=== PATIENT | female | born 1955 | race African-American/Black ===

== ENCOUNTER 2020-02-10 14:39 | Inpatient (IN) | payer MEDICARE, MEDICAID ==
[~2020-02-10] VITALS: Ht 167.6 cm; Wt 117.0 kg
[2020-02-10] MEDS ORDERED: SODIUM CHLORIDE 0.9% 1,000 ML IV ONE (15:15)
[2020-02-10 16:15] LABS: BASOPHILS % 0.3 % (0.0-2.0); EOSINOPHILS % 1.1 % (0.0-5.0); HEMATOCRIT. 39.9 % (36.0-48.0); LYMPHOCYTES % 20.9 % (20.0-50.0); MEAN CORPUSCULAR HEMOGLOBIN 24.9 pg (28.0-32.0); MEAN CORPUSCULAR VOLUME 76.2 fL (81.0-99.0); MEAN PLATELET VOLUME 8.9 fl (7.4-10.4); MONOCYTES % 4.7 % (2.0-8.0); PLATELET 323 x1000/uL (130-400); RED BLOOD CELL COUNT 5.23 mill/uL (4.2-5.4); RED CELL DISTRIBUTION WIDTH 17.4 % (11.6-14.6)
[2020-02-10 16:49] LABS: CHLORIDE 109 mEq/L (98-107)
[2020-02-10] MEDS ORDERED: IPRATROPIUM/ALBUTEROL 0.5-3(2.5)MG/3ML NEB NEB PRN (22:30)
[2020-02-10] MEDS ORDERED: ACETAMINOPHEN 325MG TABLET PO PRN (22:30)
[2020-02-10] MEDS ORDERED: MAGNESIUM/ALUMINUM HYDROXIDE/SIMETHICONE 30ML UDC PO PRN (22:30)
[2020-02-10] MEDS ORDERED: LORAZEPAM 0.5MG TABLET PO PRN (22:30)
[2020-02-10] MEDS ORDERED: DOCUSATE SODIUM 100MG CAPSULE PO PRN (22:30)
[2020-02-10] MEDS ORDERED: ONDANSETRON HCL 4MG/2ML INJ IV PRN (22:30)
[2020-02-10] MEDS: SODIUM CHLORIDE 0.9% 1,000 ML IV SCH (22:47)
[2020-02-11] VITALS (33 sets, daily range): BP systolic 114–181; BP diastolic 44–102
[2020-02-11 02:52] LABS: *AMPHETAMINES SCREEN URINE NEGATIVE (NEGATIVE); *BARBITURATES SCREEN URINE NEGATIVE (NEGATIVE); *BENZODIAZEPINES SCREEN URINE NEGATIVE (NEGATIVE); *COCAINE SCREEN URINE NEGATIVE (NEGATIVE)
[2020-02-11 02:53] LABS: CANNABINOID URINE SCREEN NEGATIVE (NEGATIVE); METHADONE URINE SCREEN NEGATIVE (NEGATIVE); OPIATES URINE SCREEN NEGATIVE (NEGATIVE); PHENCYCLIDINE URINE SCREEN NEGATIVE (NEGATIVE)
[2020-02-11 03:21] LABS: CLARITY URINE CLEAR (CLEAR); COLOR URINE YELLOW (YELLOW); KETONES URINE NEGATIVE (NEGATIVE); LEUKOCYTE ESTERASE URINE NEGATIVE (NEGATIVE); NITRITE URINE NEGATIVE (NEGATIVE); OCCULT BLOOD URINE NEGATIVE (NEGATIVE); PROTEIN URINE TRACE (NEGATIVE); SPECIFIC GRAVITY URINE 1.015 (1.005-1.030); UROBILINOGEN URINE 0.2 E.U./dL (0.2-1.0)
[2020-02-11] MEDS: CLONIDINE 0.1MG TABLET PO PRN ×2 (05:06→21:08)
[2020-02-11 05:34] LABS: BASOPHILS % 0.3 % (0.0-2.0); EOSINOPHILS % 1.6 % (0.0-5.0); HEMOGLOBIN. 12.2 g/dL (12.0-16.0); LYMPHOCYTES % 26.9 % (20.0-50.0); MEAN PLATELET VOLUME 8.4 fl (7.4-10.4); MONOCYTES % 5.3 % (2.0-8.0); NEUTROPHILS % 65.9 % (40.0-76.0); PLATELET 289 x1000/uL (130-400); RED BLOOD CELL COUNT 4.87 mill/uL (4.2-5.4); RED CELL DISTRIBUTION WIDTH 17.2 % (11.6-14.6)
[2020-02-11 05:41] LABS: CHLORIDE 111 mEq/L (98-107)
[2020-02-11 05:58] LABS: LDL CHOLESTEROL 145 mg/dL (5-100)
[2020-02-11 05:59] LABS: HDL CHOLESTEROL 38 mg/dL (40-59)
[2020-02-11] MEDS: SODIUM CHLORIDE 0.9% 1,000 ML IV SCH (12:28)
[2020-02-11] MEDS ORDERED: DEXTROSE 50% WATER 50ML SYRINGE IV PRN (14:00)
[2020-02-11] MEDS: LACTULOSE 20G/30ML UDC PO SCH ×2 (14:32→21:08)
[2020-02-11 16:25] LABS: HEPATITIS B SURFACE ANTIGEN NEGATIVE
[2020-02-11 16:55] LABS: HEPATITIS A AB IGM NEGATIVE (NEGATIVE)
[2020-02-11] MEDS: INSULIN LISPRO 100 UNITS/ML SUBCUT SCH ×2 (17:51→21:00)
[2020-02-11] MEDS: BLOOD SUGAR DIAGNOSTIC STRIP TEST SCH ×2 (17:51→21:01)
[2020-02-12] VITALS (46 sets, daily range): BP systolic 118–182; BP diastolic 69–109
[2020-02-12] MEDS: SODIUM CHLORIDE 0.9% 1,000 ML IV SCH (01:02)
[2020-02-12 06:07] LABS: BASOPHILS % 0.3 % (0.0-2.0); EOSINOPHILS % 3.5 % (0.0-5.0); HEMATOCRIT. 34.7 % (36.0-48.0); HEMOGLOBIN. 11.5 g/dL (12.0-16.0); LYMPHOCYTES % 34.9 % (20.0-50.0); MEAN CORPUSCULAR VOLUME 75.8 fL (81.0-99.0); MEAN PLATELET VOLUME 8.7 fl (7.4-10.4); MONOCYTES % 5.2 % (2.0-8.0); NEUTROPHILS % 56.1 % (40.0-76.0); PLATELET 270 x1000/uL (130-400); RED BLOOD CELL COUNT 4.58 mill/uL (4.2-5.4); RED CELL DISTRIBUTION WIDTH 16.6 % (11.6-14.6)
[2020-02-12 06:17] LABS: CHLORIDE 108 mEq/L (98-107)
[2020-02-12] MEDS: LACTULOSE 20G/30ML UDC PO SCH ×2 (06:53→13:16)
[2020-02-12] MEDS: INSULIN LISPRO 100 UNITS/ML SUBCUT SCH ×4 (07:29→20:38)
[2020-02-12] MEDS: BLOOD SUGAR DIAGNOSTIC STRIP TEST SCH ×3 (07:29→20:31)
[2020-02-13] VITALS: BP 163/84
[2020-02-13] MEDS: LACTULOSE 20G/30ML UDC PO SCH ×4 (01:27→20:35)
[2020-02-13 04:00] VITALS: BP 160/90
[2020-02-13] MEDS: CLONIDINE 0.1MG TABLET PO PRN ×3 (05:38→20:55)
[2020-02-13] MEDS: BLOOD SUGAR DIAGNOSTIC STRIP TEST SCH ×4 (05:48→20:34)
[2020-02-13 06:55] LABS: BASOPHILS % 0.5 % (0.0-2.0); EOSINOPHILS % 1.2 % (0.0-5.0); HEMATOCRIT. 34.7 % (36.0-48.0); HEMOGLOBIN. 11.6 g/dL (12.0-16.0); LYMPHOCYTES % 18.4 % (20.0-50.0); MEAN CORPUSCULAR HEMOGLOBIN 25.2 pg (28.0-32.0); MEAN CORPUSCULAR VOLUME 75.2 fL (81.0-99.0); MEAN PLATELET VOLUME 8.6 fl (7.4-10.4); MONOCYTES % 5.5 % (2.0-8.0); NEUTROPHILS % 74.4 % (40.0-76.0); PLATELET 245 x1000/uL (130-400); RED BLOOD CELL COUNT 4.61 mill/uL (4.2-5.4); RED CELL DISTRIBUTION WIDTH 16.4 % (11.6-14.6)
[2020-02-13] MEDS: INSULIN LISPRO 100 UNITS/ML SUBCUT SCH ×4 (07:30→20:34)
[2020-02-13 08:00] VITALS: BP 155/88
[2020-02-13 08:38] LABS: CHLORIDE 108 mEq/L (98-107)
[2020-02-13 12:00] VITALS: BP 167/91
[2020-02-13 16:00] VITALS: BP 162/87
[2020-02-13 20:27] VITALS: BP 178/93
[2020-02-14] VITALS (8 sets, daily range): BP systolic 135–183; BP diastolic 72–97
[2020-02-14] MEDS: LACTULOSE 20G/30ML UDC PO SCH ×3 (06:00→21:30)
[2020-02-14] MEDS: BLOOD SUGAR DIAGNOSTIC STRIP TEST SCH ×4 (06:03→21:30)
[2020-02-14] MEDS: INSULIN LISPRO 100 UNITS/ML SUBCUT SCH ×4 (06:03→21:00)
[2020-02-14 06:30] LABS: CHLORIDE 107 mEq/L (98-107)
[2020-02-14 06:47] LABS: BASOPHILS % 0.3 % (0.0-2.0); HEMATOCRIT. 37.1 % (36.0-48.0); HEMOGLOBIN. 12.4 g/dL (12.0-16.0); LYMPHOCYTES % 24.5 % (20.0-50.0); MEAN CORPUSCULAR HEMOGLOBIN 25.4 pg (28.0-32.0); MEAN CORPUSCULAR VOLUME 75.5 fL (81.0-99.0); MEAN PLATELET VOLUME 8.9 fl (7.4-10.4); MONOCYTES % 6.5 % (2.0-8.0); NEUTROPHILS % 66.7 % (40.0-76.0); PLATELET 233 x1000/uL (130-400); RED BLOOD CELL COUNT 4.91 mill/uL (4.2-5.4); RED CELL DISTRIBUTION WIDTH 16.3 % (11.6-14.6)
[2020-02-14] MEDS: CLONIDINE 0.1MG TABLET PO PRN (10:04)
[2020-02-14] MEDS ORDERED: CLONIDINE 0.2MG TABLET PO PRN (11:30)
[2020-02-14] MEDS ORDERED: AMLO5TAB88 MT (12:35)
[2020-02-14] MEDS ORDERED: HYDRALAZINE 20MG/ML VIAL IV NR (17:00)
[2020-02-15 04:00] VITALS: BP 129/78
[2020-02-15] MEDS: BLOOD SUGAR DIAGNOSTIC STRIP TEST SCH (05:58)
[2020-02-15] MEDS: INSULIN LISPRO 100 UNITS/ML SUBCUT SCH (05:58)
[2020-02-15] MEDS: LACTULOSE 20G/30ML UDC PO SCH (05:58)
[2020-02-15 08:00] VITALS: BP 140/89
[2020-02-17 10:08] LABS: 7-AMINOCLONAZEPAM CONFIRM 62 ng/mL (.); ALPRAZOLAM CONFIRM Negative (.); BARBITURATE SCREEN Negative ug/mL (Cutoff:0.1); BENZODIAZEPINE SCREEN ++POSITIVE++ ng/mL (Cutoff:20); CHLORDIAZEPOXIDE CONFIRM Negative (.); CLONAZEPAM CONFIRM 13 ng/mL (.); DESMETHYLCHLORDIAZEPOXIDE Negative (.); DIAZEPAM CONFIRM Negative (.); FLURAZEPAM CONFIRM Negative (.); LORAZEPAM CONFIRM Negative (.); MIDAZOLAM CONFIRM Negative (.); OPIATES SCREEN Negative ng/mL (Cutoff:5); OXAZEPAM CONFIRM Negative (.); PHENCYCLIDINE SCREEN Negative ng/mL (Cutoff:8); TEMAZEPAM CONFIRM Negative (.); TRIAZOLAM CONFIRM Negative (.)
== END 2020-02-15 09:40 | disposition home or self-care (01) | DRG 812 ==
LOC: ER 14:39 → MICUSO 19:25 → EDBEDREQSVC 19:29 → EDBEDREQTM 19:29 → EDBEDREQ 19:30 → CVICU 02-11 03:17 → 6WST 02-12 15:02
PROVIDERS: ADMIT Internal Medicine; ATTEND Internal Medicine
DX: T43.91XA Poisoning by unspecified psychotropic drug, accidental (unintentional), initial encounter (principal); K72.90 Hepatic failure, unspecified without coma; N17.9 Acute kidney failure, unspecified; R78.81 Bacteremia; N18.9 Chronic kidney disease, unspecified; R47.01 Aphasia; F20.0 Paranoid schizophrenia; E66.01 Morbid (severe) obesity due to excess calories; E87.2 Acidosis; E78.00 Pure hypercholesterolemia, unspecified; F31.9 Bipolar disorder, unspecified; I13.10 Hypertensive heart and chronic kidney disease without heart failure, with stage 1 through stage 4 chronic kidney disease, or unspecified chronic kidney disease; F41.9 Anxiety disorder, unspecified; K21.9 Gastro-esophageal reflux disease without esophagitis; E11.22 Type 2 diabetes mellitus with diabetic chronic kidney disease; Z68.41 Body mass index [BMI] 40.0-44.9, adult; Y92.89 Other specified places as the place of occurrence of the external cause; Z79.899 Other long term (current) drug therapy
CPT/HCPCS: 36415; 70551; 71045; 80048; 80053; 80061; 80305; 80307; 81003; 82010; 82140; 82248; 82962; 83036; 83605; 83880; 84145; 84443; 84484; 85025; 85651; 86705; 86709; 86803; 87340; 93005; 93970; 99285; J0360; J1815; J7030

== ENCOUNTER 2020-03-04 14:06 | Inpatient (IN) | payer MEDICARE, MEDICAID ==
[~2020-03-04] VITALS: Ht 167.6 cm; Wt 102.2 kg
[~2020-03-04 14:06] MED LIST: AMLO5TAB88 MT
[2020-03-04] MEDS ORDERED: SODIUM CHLORIDE 0.9% 1,000 ML IV ONE (14:28)
[2020-03-04] MEDS ORDERED: HALOPERIDOL LACTATE 5MG/ML VIAL IM ONE (14:30)
[2020-03-04 14:54] LABS: BASOPHILS % 0.7 % (0.0-2.0); EOSINOPHILS % 0.8 % (0.0-5.0); HEMATOCRIT. 37.3 % (36.0-48.0); LYMPHOCYTES % 23.6 % (20.0-50.0); MEAN CORPUSCULAR HEMOGLOBIN 24.6 pg (28.0-32.0); MEAN CORPUSCULAR VOLUME 76.7 fL (81.0-99.0); MONOCYTES % 3.5 % (2.0-8.0); NEUTROPHILS % 71.4 % (40.0-76.0); PLATELET 258 x1000/uL (130-400); RED BLOOD CELL COUNT 4.87 mill/uL (4.2-5.4); RED CELL DISTRIBUTION WIDTH 16.2 % (11.6-14.6)
[2020-03-04 15:02] LABS: CHLORIDE 114 mEq/L (98-107)
[2020-03-04 15:07] LABS: ETHANOL BLOOD < 10 mg/dL
[2020-03-04 15:11] LABS: CREATINE KINASE 153 IU/L (26-192)
[2020-03-04 16:36] LABS: CLARITY URINE CLOUDY (CLEAR); COLOR URINE YELLOW (YELLOW); KETONES URINE NEGATIVE (NEGATIVE); LEUKOCYTE ESTERASE URINE 3+ (NEGATIVE); NITRITE URINE NEGATIVE (NEGATIVE); OCCULT BLOOD URINE 1+ (NEGATIVE); PH URINE 5.5 (4.5-8.0); PROTEIN URINE 1+ (NEGATIVE); SPECIFIC GRAVITY URINE 1.016 (1.005-1.030); UROBILINOGEN URINE 0.2 E.U./dL (0.2-1.0)
[2020-03-04 16:59] LABS: *AMPHETAMINES SCREEN URINE NEGATIVE (NEGATIVE); *BARBITURATES SCREEN URINE NEGATIVE (NEGATIVE); *BENZODIAZEPINES SCREEN URINE NEGATIVE (NEGATIVE); *COCAINE SCREEN URINE NEGATIVE (NEGATIVE); CANNABINOID URINE SCREEN NEGATIVE (NEGATIVE); METHADONE URINE SCREEN NEGATIVE (NEGATIVE); OPIATES URINE SCREEN NEGATIVE (NEGATIVE); PHENCYCLIDINE URINE SCREEN NEGATIVE (NEGATIVE)
[2020-03-04] MEDS ORDERED: CEFTRIAXONE 1 G PREMIX 50 ML IV ONE (17:45)
[2020-03-04] MEDS ORDERED: HYDRALAZINE 20MG/ML VIAL IV ONE ×2 (18:15→20:00)
[2020-03-04] MEDS ORDERED: QUETIAPINE FUMARATE 50MG TABLET PO STA (19:50)
[2020-03-04 20:00] VITALS: BP 131/65
[2020-03-04] MEDS ORDERED: HYDROCODONE/ACETAMINOPHEN 5/325MG TABLET PO PRN (21:15)
[2020-03-04] MEDS ORDERED: ACETAMINOPHEN 325MG TABLET PO PRN ×2 (21:15)
[2020-03-04] MEDS ORDERED: ONDANSETRON HCL 4MG/2ML INJ IV PRN (21:15)
[2020-03-04] MEDS ORDERED: DOCUSATE SODIUM 100MG CAPSULE PO PRN (21:15)
[2020-03-04] MEDS ORDERED: LORAZEPAM 2MG/ML CPJ IV PRN (21:15)
[2020-03-04] MEDS ORDERED: CLONIDINE 0.1MG TABLET PO PRN (21:15)
[2020-03-04] MEDS ORDERED: IPRATROPIUM/ALBUTEROL 0.5-3(2.5)MG/3ML NEB HHN PRN (21:15)
[2020-03-05] VITALS: BP 127/54
[2020-03-05] MEDS: SODIUM CHLORIDE 0.9% 1,000 ML IV SCH ×2 (01:37→06:22)
[2020-03-05 03:19] VITALS: BP 131/65
[2020-03-05 04:00] VITALS: BP 138/83
[2020-03-05 07:41] LABS: BASOPHILS % 0.4 % (0.0-2.0); EOSINOPHILS % 3.8 % (0.0-5.0); HEMATOCRIT. 34.1 % (36.0-48.0); HEMOGLOBIN. 11.1 g/dL (12.0-16.0); LYMPHOCYTES % 34.5 % (20.0-50.0); MEAN CORPUSCULAR HEMOGLOBIN 24.7 pg (28.0-32.0); MEAN PLATELET VOLUME 8.8 fl (7.4-10.4); MONOCYTES % 5.4 % (2.0-8.0); NEUTROPHILS % 55.9 % (40.0-76.0); PLATELET 240 x1000/uL (130-400); RED BLOOD CELL COUNT 4.49 mill/uL (4.2-5.4); RED CELL DISTRIBUTION WIDTH 16.5 % (11.6-14.6)
[2020-03-05 08:00] VITALS: BP 139/86
[2020-03-05 16:37] VITALS: BP 139/86
== END 2020-03-05 17:33 | disposition home or self-care (01) | DRG 58 ==
LOC: ER 14:06 → EDBEDREQTM 16:14 → EDBEDREQ 16:14 → 6EST 17:38 → EDBEDREQTM 17:40 → EDBEDREQSVC 17:40 → EDBEDREQ 17:40 → ENRESERV 19:33
PROVIDERS: ADMIT Internal Medicine; ATTEND Internal Medicine
DX: G98.8 Other disorders of nervous system (principal); N30.90 Cystitis, unspecified without hematuria; N17.9 Acute kidney failure, unspecified; G93.40 Encephalopathy, unspecified; N18.9 Chronic kidney disease, unspecified; K21.9 Gastro-esophageal reflux disease without esophagitis; E11.22 Type 2 diabetes mellitus with diabetic chronic kidney disease; I12.9 Hypertensive chronic kidney disease with stage 1 through stage 4 chronic kidney disease, or unspecified chronic kidney disease; D50.9 Iron deficiency anemia, unspecified; F20.0 Paranoid schizophrenia; F31.9 Bipolar disorder, unspecified; F41.9 Anxiety disorder, unspecified
CPT/HCPCS: 36415; 71045; 80048; 80053; 80305; 80320; 81003; 82140; 82550; 83880; 84145; 84484; 85025; 87077; 87186; 93005; 96365; 99285; J0360; J0696; J1630; J7030; G0480